=== PATIENT | female | born 1955 | race Caucasian/White ===

== ENCOUNTER 2018-12-20 06:26 | Day surgery (SDC) | payer OTHER ==
[2018-12-20] VITALS (9 sets, daily range): BP systolic 133–163; BP diastolic 69–95; PULSE 60–70; RESP 17–23; Ht 160 cm; Wt 73.0 kg
[~2018-12-20] VITALS: Ht 160 cm; Wt 73.0 kg
[2018-12-20] MEDS ORDERED: LISI10TA2 PO (07:01)
[2018-12-20] MEDS ORDERED: BUPIVACAINE 0.25% (MPF) 30 ML INJ ONE (07:08)
--- NOTE | 2018-12-20 07:27 | PREAC ---
Date/Time of Note Date/Time of Note DATE: 12/20/18 TIME: 07:25 Anesthesia Eval and Record Evaluation Time Pre-Procedure Interview DATE: 12/20/18 TIME: 07:25 Age 63 Sex female NPO: 8 hrs Preoperative diagnosis scalp mass 2 Planned procedure excisionm scalp masses Past Medical History Past Medical History: Includes Cardio: HTN Surgery & Anesthesia Issues No known issue Meds Anticoagulation: No Beta Parisa within 24 hr: No Reason Beta Parisa not given: Pt. not on B-Parisa Reported Medications Lisinopril* (Lisinopril*) 10 Mg Tablet, 10 MG PO DAILY, #30 TAB 12/20/18 Meds reviewed: Yes Allergies Coded Allergies: No Known Allergy (Unverified , 12/20/18) Allergies Reviewed: Yes Labs/Studies Labs Reviewed: Reviewed by anesthesiologist test: N/A Studies: ECG (n/a), CXR (n/a) Pre-procedure Exam Last vitals Vital Signs Date Temp Pulse Resp B/P (MAP) Pulse Ox O2 O2 Flow FiO2 Time Delivery Rate 12/20/18 97.9 60 17 155/90 99 Room Air 07:11 (111) Airway: Adequate mouth opening Mallampati: Mallampati I Teeth: Abnormal (chipped front) Lung: Normal Heart: Normal ASA Physical Status ASA physical status: 2 Emergency: None Planned Anesthetic General/MAC: MAC Planned Pain Management Parenteral pain med Pre-operative Attestations Prior to commencing anesthesia and surgery, the patient was re-evaluated, there was verification of: *The patient's identity *The results of appropriate recent lab work and preoperative vital signs *The above evaluation not changing prior to induction *Anesthetic plan, risk benefits, alternative and complications discussed with patient/family; questions answered; patient/family understands, accepts and wishes to proceed. TRINA FINE MD Dec 20, 2018 07:27
[2018-12-20] MEDS ORDERED: hydrALAzine 20 MG INJ IV PRN (07:30)
[2018-12-20] MEDS ORDERED: MEPERIDINE 25 MG INJ IV PRN (07:30)
[2018-12-20] MEDS ORDERED: DIPHENHYDRAMINE 50 MG INJ IV PRN (07:30)
[2018-12-20] MEDS ORDERED: OXYCODONE/ACETAMINOPHEN (5/325) TAB PO PRN ×4 (07:30→08:30)
[2018-12-20] MEDS ORDERED: HYDROmorphONE 1 MG/5 ML IV SYRINGE IV PRN ×3 (07:30)
[2018-12-20] MEDS ORDERED: ONDANSETRON 4 MG INJ IV PRN ×2 (07:30→08:30)
[2018-12-20] MEDS ORDERED: LABETALOL HCL 20MG INJ IV PRN (07:30)
[2018-12-20] MEDS ORDERED: FENTAnyl 50 MCG/ML VIAL IV PRN ×3 (07:30)
[2018-12-20] MEDS ORDERED: BUPIVACAINE 0.25%/EPI (SDV) 30 ML INJ ONE (07:32)
[2018-12-20] MEDS ORDERED: LIDOCAINE 1%/EPI (1:100,000) (MDV) 20 ML ONE (07:32)
--- NOTE | 2018-12-20 07:35 | HPN ---
Date/Time of Note Date/Time of Note DATE: 12/20/18 TIME: 07:34 Interval H&P Admission Note Pt. seen H&P reviewed: No system changes PARVIZ GALLEGO MD Dec 20, 2018 07:35
[2018-12-20] MEDS ORDERED: CEFAZOLIN 1 GM INJ ONE (07:58)
[2018-12-20] MEDS ORDERED: NEOMYC/POLYMYX/BACIT 3.5GM OPH OINT ONE (08:12)
[2018-12-20] MEDS ORDERED: NEOMYC/POLYMYX/BACIT 30 GM OINT ONE (08:13)
--- NOTE | 2018-12-20 08:22 | OPR ---
Date/Time of Note Date/Time of Note DATE: 12/20/18 TIME: 08:18 Operative Report Procedure Date: Dec 20, 2018 Preoperative Diagnosis Verrucous scalp lesion x2(2 cm dome of scalp, 3 cm posterior scalp) Postoperative Diagnosis Pathology pending Operation/Procedure Performed Excision x2 Surgeon Parviz Gallego MD Html Developer None Anesthesia Type: other (Local) Anesthesiologist: TRINA FIEN MD Estimated Blood Loss: minimal Transfusion none Specimen Scalp lesion x2 Grafts/Implants none Tubes/Drains None Complications none Pt Condition Post Procedure: stable Disposition: PACU Indications Enlarging scalp lesions Procedure Description The patient was placed in right lateral decubitus position. The area around each lesion was shaved, prepped and draped. Each area was infiltrated with an equal parts mixture of 1% lidocaine with epinephrine and 0.5% Marcaine with epinephrine for a total of 15 cc. At the 2 cm lesion on the dome of the scalp was excised first. A circular incision was made at the base with a 15 scalpel, and excised and submitted. The wound was then closed with interrupted 3-0 Prolene sutures. In identical fashion, the 3 cm posterior scalp lesion was excised and submitted. Hemostasis was achieved with electrocautery, and the wound was closed with interrupted 3-0 Prolene suture. Sponge and needle counts were reported as correct x2. PARVIZ GALLEGO MD Dec 20, 2018 08:22
[2018-12-20] MEDS ORDERED: morphine 2 MG INJ IV PRN (08:30)
--- NOTE | 2018-12-21 08:28 | PAC ---
Date/Time of Note Date/Time of Note DATE: 12/21/18 TIME: 08:28 Post-Anesthesia Notes Post-Anesthesia Note Last documented vital signs Vital Signs Date Temp Pulse Resp B/P (MAP) Pulse Ox O2 O2 Flow FiO2 Time Delivery Rate 12/20/18 97.4 63 18 142/76 100 Room Air 08:58 (98) Activity: WNL Respiratory function: WNL Cardiovascular function: WNL Mental status: Baseline Pain reasonably controlled: Yes Hydration appropriate: Yes Nausea/Vomiting absent: No TRINA FINE MD Dec 21, 2018 08:28
== END 2018-12-20 09:15 | disposition home or self-care (01) ==
LOC: SDS 06:26
PROVIDERS: ATTEND Surgery
DX: R22.0 Localized swelling, mass and lump, head (principal); L82.1 Other seborrheic keratosis
CPT/HCPCS: 11423; 88307; J0690; Z7610